=== PATIENT | male | born 1955 | race Caucasian/White ===

== ENCOUNTER 2019-06-16 20:10 | Emergency (ER) | payer BC ==
[~2019-06-16] VITALS: Ht 177.8 cm; Wt 79.4 kg
[2019-06-16] MEDS ORDERED: Norco 5-325 Ta1 EACH PO (22:17)
[2019-06-16] MEDS ORDERED: IBUP600 PO (22:17)
[2019-06-16] MEDS ORDERED: CEPH500 PO (23:13)
== END 2019-06-16 23:26 | disposition home or self-care (01) ==
LOC: ER 20:10
DX: S62.635A Displaced fracture of distal phalanx of left ring finger, initial encounter for closed fracture (principal); S62.637A Displaced fracture of distal phalanx of left little finger, initial encounter for closed fracture; Z23 Encounter for immunization; W28.XXXA Contact with powered lawn mower, initial encounter
CPT/HCPCS: 73130; 90714; A9270; J0690